=== PATIENT | female | born 1950 | race Two or more races ===

== ENCOUNTER 2020-05-09 14:47 | Inpatient (IN) | payer MEDICARE, MEDICAID ==
[~2020-05-09] VITALS: Ht 157.5 cm; Wt 63.1 kg
[~2020-05-09 14:47] MED LIST: LEVOTHYROXINE88 MCG ORAL
[2020-05-09] MEDS ORDERED: BENAZEPRIL HCL20 MG ORAL (14:58)
[2020-05-09 15:00] VITALS: BP 140/67
--- NOTE | 2020-05-09 15:00 | NUR ---
ED Nurse Note: Patient from home and walked in due to left side CP that radiates to her left shoulder started yesterday. Denies SOB or vomiting. No reports fo lightheadedness. AAO x,4 ambulates with steady agit with non labored breathing, Pt is calm and cooperative. Placed on radiographer cardiac catheterization. ERMD aware.
[2020-05-09] MEDS ORDERED: Nitroglycerin 2% oint pkt TOPIC ONE (15:15)
--- NOTE | 2020-05-09 15:18 | Emergency Room Report ---
History of Present Illness General Chief Complaint: Chest Pain Source: Patient Present Illness HPI 69-year-old female with past medical history of hypertension, dyslipidemia presents with substernal left-sided chest pressure that has been constant since yesterday. She called her primary care doctor Dr. Castillo who advised her to come to the ER for further evaluation. She denies history of angiogram, echocardiogram or recent cardiac evaluation. She did not take aspirin prior to arrival. She denies any shortness of breath, dyspnea on exertion, peripheral edema, cough, fever, hemoptysis, nausea, vomiting, diarrhea, hematuria, back pain or other symptoms. The patient's symptoms were gradual onset, severity was moderate, duration since 1 day. Quality: Pressure Past medical history: hypertension, dyslipidemia Past surgical history: Hysterectomy Smoking: Denies Alcohol use: Denies Drug use: Denies Review of systems: CONST: No fevers or chills, No night sweats PULMONARY: No productive cough, No shortness of breath CARDIAC: No chest pain, No palpitations GI: No vomiting, No diarrhea , No melena_or_BRBPR : No dysuria, No hematuria, No discharge NEURO: No new_focal_weakness_or_numbness, No confusion, No vision changes 14 point Review of Systems is otherwise negative except per HPI Physical Exam: GENERAL: Awake_alert_ nontoxic, no acute distress Spo2 100% on RA -normal EYES: Extraocular muscles are intact. Conjunctivae clear. Lids without swelling ENT: External nose and ear normal_in_appearance. Oropharynx clear. Head_atraumatic, Moist_oral_mucosa NECK: No JVD. No meningismus. No thyromegaly. Supple. Trachea midline RESP: Normal respiratory effort. Symmetric rise. No stridor. Clear_to_auscultation_No_rales_No_wheezes CARDIAC: Regular rate and regular rhytm. No_significant pedal edema. ABDOMEN: Soft. Nondistended. Nontender_No_rebound_or_guarding. MSK: Normal muscle tone, without rigidity. Extremities without asymmetric deformity or swelling. SKIN: Warm and dry. No visible cyanosis or pallor NEUROLOGIC: Alert, oriented x3. Motor_and_sensation_grossly_intact. No truncal ataxia. Gait_normal Psych: Normal mood and affect, normal judgment and insight - COORDINATION OF CARE Case was discussed with: Patient , Patient's Physician Any labs and imaging that were ordered were interpreted as part of the medical decision making: Medical Decision Making/Plan: Differential diagnosis includes acute myocardial infarction, acute coronary syndrome and unstable angina, pulmonary embolism, pneumothorax, pneumonia, and aortic dissection, among others. Patient is currently well appearing with stable vitals. EKG shows biphasic T wave inversions in lead V2, V3, and T wave inversions in the lateral leads. No STEMI. Chest xray shows cardiomegaly with no pleural effusions or interstitial edema. No evidence of decompensated CHF. No evidence of pneumothorax, pneumonia, or significant pleural effusion. Troponin is negative x1. Aspirin given. However, given that chest pain is currently resolved, risks likely outweigh benefits of IV heparin at this time, so deferred. The pain is not classic for pericarditis or myocarditis, and the patient has no significant risk factors for a pericardial effusion and has stable vitals signs, unlikely to have tamponade. Pain is not likely to be pulmonary embolism, patient has no significant PE risk factors. The presentation is not consistent with dissection, pain is not severe, radiating to back, or tearing in nature. Has normal bilateral radial and pedal pulses. However given patients presentation and risk factors, patient will be admitted for serial troponins and risk stratification and evaluation for likely stress testing. This patient appears to be a suitable candidate for transfer to telemetry floor at this time with orders from the admitting physician who is aware of the patient's evaluation, ancillary test findings, and current condition, and agrees with treatment and disposition. I spoke with Dr. Da Silva, and reviewed the patients presentation, workup, results, and treatment. They will admit the patient for further care and evaluation, and assume care of the patient at this time. Allergies: Coded Allergies: No Known Allergies (Unverified , 11/18/13) COVID-19 Screening Contact w/high risk pt: No Experienced COVID-19 symptoms?: No COVID-19 Testing performed FORGING MACHINE HAND: No Nursing Documentation-[facility] Past Medical History: No History, Except For Hx Hypertension: Yes Physical Exam Vital Signs Date Time Temp Pulse Resp B/P (MAP) Pulse Ox O2 Delivery O2 Flow Rate FiO2 05/09/20 14:50 98.4 66 18 152/76 (101) 97 Room Air Sp02 EP Interpretation: reviewed, normal Medical Decision Making Diagnostic Impression: Primary Impression: Chest pain Additional Impressions: Abnormal EKG HTN (hypertension) HLD (hyperlipidemia) EKG Diagnostic Results PA Scribe Zo 12-lead EKG (interpreted by me) Time: 1454 Indication: Rhythm analysis Tracing visualized and Interpreted by me. Rhythm: Normal sinus rhythm Rate: 63 bpm QTc: 425 Morphology: No_significant_ST_elevations_or_depressions, No STEMI Impression: Biphasic T wave inversions in lead V2 and V3. T wave inversions in lateral leads. No acute STEMI Rhythm Strip Diag. Results Rhythm Strip Time: 15:18 EP Interpretation: yes Rate: 65 Rhythm: NSR, no PVC's, no ectopy Chest X-Ray Diagnostic Results Chest X-Ray Diagnostic Results : RENA Alvarezibe Zo Chest X-Ray: Views: 1 view(s) Indication: Chest pain Findings: Normal heart size. Mediastinum normal. No infiltrate. Impression: No acute disease The X-ray(s) were independently viewed and interpreted contemporaneously Electronically signed by Carmina maldonado DO Reevaluation Time: 16:16 Last Vital Signs Date Time Temp Pulse Resp B/P (MAP) Pulse Ox O2 Delivery O2 Flow Rate FiO2 05/09/20 15:13 152/76 05/09/20 14:50 98.4 66 18 97 Room Air Status: improved Disposition: ADMITTED INPATIENT Admit Decision Time: 15:18 Condition: Stable Carmina Bess D.O. May 09, 2020 15:18
--- NOTE | 2020-05-09 15:23 | NUR ---
ED Nurse Note: Collected blood specimen then sent.
[2020-05-09 15:29] LABS: BASOPHILS % (AUTO) 1.7 % (0.0-2.0); EOSINOPHILS % (AUTO) 2.5 % (0.0-3.0); HEMATOCRIT 41.1 % (37.0-47.0); HEMOGLOBIN 13.9 G/DL (12.0-16.0); MEAN CORPUSCULAR VOLUME 90 FL (80-99); MONOCYTES % (AUTO) 9.2 % (1.0-10.0); NEUTROPHILS % (AUTO) 41.8 % (45.0-75.0); PLATELET COUNT 230 K/UL (150-450); RED BLOOD COUNT 4.57 M/UL (4.20-5.40); RED CELL DISTRIBUTION WIDTH 12.3 % (11.6-14.8); WHITE BLOOD COUNT 7.7 K/UL (4.8-10.8)
[2020-05-09 15:48] LABS: ANION GAP 5 mmol/L (5-15); BLOOD UREA NITROGEN 11 mg/dL (7-18); CALCIUM 8.9 MG/DL (8.5-10.1); CARBON DIOXIDE 29 MMOL/L (21-32); CHLORIDE 109 MMOL/L (98-107); CREATININE 0.8 MG/DL (0.55-1.30); POTASSIUM 3.5 MMOL/L (3.5-5.1); SODIUM 143 MMOL/L (136-145)
[2020-05-09 15:59] LABS: ALANINE AMINOTRANSFERASE 52 U/L (12-78); ALBUMIN 3.9 G/DL (3.4-5.0); ALBUMIN/GLOBULIN RATIO 1.1 (1.0-2.7); ALKALINE PHOSPHATASE 95 U/L (46-116); ASPARTATE AMINO TRANSFERASE 35 U/L (15-37); BILIRUBIN,TOTAL 0.3 MG/DL (0.2-1.0); CHOLESTEROL 192 MG/DL (< 200); HDL CHOLESTEROL 55 MG/DL (40-60); TRIGLYCERIDES 87 MG/DL (30-150)
--- NOTE | 2020-05-09 16:00 | NUR ---
ED Nurse Note: Patient is resting on gurney with no distress at this time. Calm and speaks in full sentences.
--- NOTE | 2020-05-09 16:56 | Diagnostic Imaging Report ---
FILM CXR 1 VIEW INDICATION: Pain COMPARISON: November 18, 2013 FINDINGS: Single frontal view demonstrates prominent heart size and pulmonary vascular congestion. The lungs are clear. No pleural effusions. The visualized osseous structures are within normal limits. IMPRESSION: Enlarged heart and mild pulmonary congestion without focal pneumonia.
[2020-05-09 17:13] VITALS: BP 105/62
--- NOTE | 2020-05-09 17:13 | NUR ---
ED Nurse Note: Patient sleeping in bed. No facial grimacing or guarding noted.
--- NOTE | 2020-05-09 17:23 | NUR ---
ED Nurse Note: Report given to dee dee KAUR of telemetry unit.
--- NOTE | 2020-05-09 17:30 | NUR ---
NURSE NOTES: Pt arrived in the unit. Received report from SANDRA Wilder RN. Pt alert, A/O x4, Wolof speaking but understands German, able to make needs known. Pt has steady gait. Pt complaining of 8/10 pain on L chest that radiates to L shoulder, nitro patch still intact from ED. VS obtained and WNL (BP 115/67, RR 16, O2 sat in RA 98%, HR 60). Admission assessment performed, skin intact. IV site patent and asymptomatic. Bed on lowest position, call light within reach. Med brought by pt, will bring to pharmacy. Pt refused to re-count her money and refused to keep in safe. Will contact MD for admission orders.
[2020-05-09 18:00] VITALS: BP 115/67
--- NOTE | 2020-05-09 18:20 | NUR ---
NURSE NOTES: Left a VM to Dr Sherman, awaiting for callback for admission orders.
[2020-05-09] MEDS ORDERED: Morphine Sulfate 4mg/ml Inj (IV USE ONLY) IVP PRN (18:30)
[2020-05-09] MEDS ORDERED: Milk of Magnesia 30ml Ud ORAL PRN (18:30)
[2020-05-09] MEDS ORDERED: Zolpidem 5mg tab ORAL PRN (18:30)
[2020-05-09] MEDS ORDERED: Aspirin EC 325mg tab ORAL SCH (18:30)
[2020-05-09] MEDS ORDERED: Morphine Sulfate 2mg/ml Inj(IV/IM USE ONLY) IVP PRN (18:30)
--- NOTE | 2020-05-09 19:25 | NUR ---
NURSE NOTES: Patient received from NATASHA Selby. Patient is awake, alert and oriented x 4. Patient is talkative, only speaks Yemeni. Patient is in room air satting at 98%. Patient has a 20 gauge IV on his right AC. No complaints at this moment. Bed is in the lowest position, call light within reach. Will continue to monitor.
[2020-05-09] MEDS: Lisinopril 10mg tab ORAL SCH (19:30)
--- NOTE | 2020-05-09 19:34 | NUR ---
NURSE HAND-OFF REPORT: Important Events on Shift: New admit Patient Status: Diet: Pending Orders: Pending Results/Labs: Pending MD notification: Latest Vital Signs: Temperature 96.4 , Pulse 60 , B/P 115 /67 , Respiratory Rate 16 , O2 SAT 98 , Room Air, O2 Flow Rate . Vital Sign Comment: EKG Rhythm: Sinus Rhythm Rhythm change?: MD Notified?: - MD Response: Latest Ferrer Fall Score: 20 Fall Risk: Low Risk Safety Measures: Call light Within Reach, Bed Alarm Zone 1, Side Rails Side Rails x2, Bed position Low and Locked. Fall Precautions: Patient Fall Education Report given to NATASHA Black
[2020-05-09 20:00] VITALS: BP 108/52
--- NOTE | 2020-05-09 20:40 | NUR ---
NURSE NOTES: Patient experienced an episode of low BP 108/52. Contacted Dr. Sha Sherman. Instructed to hold lisinopril [address] Sha Sherman.
[2020-05-10 00:05] VITALS: BP 106/57
[2020-05-10 04:00] VITALS: BP 136/71
--- NOTE | 2020-05-10 07:20 | NUR ---
NURSE HAND-OFF REPORT: Important Events on Shift:[Hold lisinopril for SBP less than [address] Sha Sherman] Patient Status: [] Diet: [No added salt diet] Pending Orders: [] Pending Results/Labs:[] Pending MD notification:[] Latest Vital Signs: Temperature 97.9 , Pulse 60 , B/P 136 /71 , Respiratory Rate 16 , O2 SAT 98 , Room Air, O2 Flow Rate . Vital Sign Comment: [] EKG Rhythm: Sinus Rhythm Rhythm change?: Y MD Notified?: N - MD Response: Latest Ferrer Fall Score: 20 Fall Risk: Low Risk Safety Measures: Call light Within Reach, Bed Alarm Zone 1, Side Rails Side Rails x2, Bed position Low and Locked. Fall Precautions: Patient Fall Education Report given to [NATASHA Montaño].
--- NOTE | 2020-05-10 07:26 | NUR ---
NURSE NOTES: Pt in bed eating breakfast. No complaint of pain or distress. bed low and locked. call light within reach. Whiteboard updated. Addendum: 05/10/20 at 0729 by Sabra Bermudez RN Pt received from NATASHA Black.
[2020-05-10 08:00] VITALS: BP 126/70
[2020-05-10] MEDS: Nitroglycerin Subl 0.4mg tab SL PRN ×2 (08:08→08:14)
[2020-05-10] MEDS: Lisinopril 10mg tab ORAL SCH (09:00)
--- NOTE | 2020-05-10 09:02 | NUR ---
NURSE NOTES: At 8:10 pt complained of 8/10 chest pain radiating to left should. BP 126/70. Gave nitro SL .4mg. after 5 minutes pain at 7/10 same radiation pattern. Gave second dose. BP dropped to 102/62. o2 at 2 liters NC applied. spoke to Dr. Sherman who said to contact Dr. Steiner. Per Dr. Johnson do Stat EKG. After reviewing ekg results he ordered venous duplex and 2d echo. All orders place. Current pain is 3/10 in the chest with radiation to left shoulder. States that she experienced epigastric pain as well a few moments ago but now it is gone.
[2020-05-10] MEDS: Aspirin EC 325mg tab ORAL SCH (09:22)
--- NOTE | 2020-05-10 09:48 | History & Physical ---
History and Physical History & Physicial HP dictated # [id number] Sha Sherman MD May 10, 2020 09:48
--- NOTE | 2020-05-10 10:45 | History and Physical Report ---
DATE OF ADMISSION: 05/09/2020 CHIEF COMPLAINT: Chest pain. HISTORY OF PRESENT ILLNESS: This is a 69-year-old female who presented to the emergency room with chest pressure which started the day prior to admission. The patient now states that when she takes a deep breath, the pain is worse. The patient was admitted for further evaluation and treatment. PAST MEDICAL HISTORY: The patient denies history of diabetes, although it is mentioned in the ER note, she does have history of hypertension and hyperlipidemia. PAST SURGICAL HISTORY: Hysterectomy. MEDICATIONS: Reviewed in the EMR. SOCIAL HISTORY: No history of smoking or alcohol abuse. The patient lives with her children. ALLERGIES: No known drug allergies. REVIEW OF SYSTEMS: Noncontributory except above. PHYSICAL EXAMINATION: GENERAL: The patient is a 69-year-old female in no acute distress. VITAL SIGNS: Blood pressure 115/62, pulse 66, temperature 98.7, respiratory rate 17. HEENT: [place] conjunctivae. Anicteric sclerae. NECK: Supple. LUNGS: Clear to auscultation. CHEST: The patient has some tenderness. HEART: S1, S2 without murmurs or rubs. ABDOMEN: Soft, nontender. EXTREMITIES: No cyanosis or edema. LABORATORY FINDINGS: CBC shows a WBC of 7700, hematocrit 41.1, hemoglobin is 13.9, platelets 230,000. Chemistry panel shows a serum sodium 143, potassium 3.5, chloride 109, BUN is 11, creatinine 0.8. TSH is 9.9. EKG could not be found in the chart today; however, the tracing does not show any acute changes. ASSESSMENT: This is a 69-year-old female who was admitted with chest pain, although the patient says it is pressure like; however, now she said that it is worse with respirations so it appears that it is pleuritic chest pain and atypical. Her risk factors are hypertension and hyperlipidemia. PLAN: The patient will have troponins checked to rule out myocardial infarction. Cardiology consultation will be obtained. The patient will likely need a stress test prior to discharge after she is ruled out. Lipid panel will be checked. Medication will be adjusted. TSH is somewhat on the high side; however, she is on levothyroxine, which we will continue and I will not increase the dose at this time. The patient was started on aspirin. Sha Sherman M.D. DR: Efrain JOB#: [id number] CC:
--- NOTE | 2020-05-10 10:55 | Diagnostic Imaging Report ---
EXAM: ULTRASOUND Venous Duplex Scan Ashvin Leg CLINICAL HISTORY: Leg pain and edema. COMPARISON: None TECHNIQUE: Doppler examination include grayscale images obtained with and without compression, and color and spectral doppler analysis. FINDINGS: Doppler examination shows normal spontaneity, phasicity, compressibility in the bilateral lower extremities. There is no thrombus identified by grayscale. Normal color and spectral flow is identified. There is no evidence of valvular incompetency or insufficiency. IMPRESSION: UNREMARKABLE VENOUS DUPLEX.
[2020-05-10 12:00] VITALS: BP 110/60
--- NOTE | 2020-05-10 14:00 | NUR ---
NURSE NOTES: Reported to Dr. Steiner the results od 2d echo, negative venous duplex, chest pain of 3/10 radiating to left shoulder. Waiting for response
--- NOTE | 2020-05-10 14:15 | NUR ---
CASE MANAGEMENT: REVIEW 69 YEAR OLD FEMALE PRESENTED TO ED FROM HOME CC: CHEST PAIN SI: ACS . HTN T 98.4 HR 53 RR 14 BP 152/76 SAT 97% ROOM AIR LDL CHOLESTEROL 119 TROP I 0.008 IS: ASA 325MG PO X1 NITROGLYCERIN 1 INCH TOPICAL X1 CARDIO CONSULTED 2D ECHO PENDING VENOUS DUPLEX SCAN BLE PENDING TELEMETRY UNIT STATUS DCP: PATIENT IS FROM HOME
[2020-05-10 16:00] VITALS: BP 110/60
--- NOTE | 2020-05-10 19:20 | NUR ---
NURSE NOTES: Received report from NATASHA Montaño pt in bed, awake, alert, oriented X4. Able to make needs known. No resp distress noted. 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 Right AC 20G saline locked, no s/s infiltration noted. Amb with slow steady gait. Bed in low position & locked, side rails up x2. Call light with in reach. bed alarm on. Explained to pt to use call light when assistance is needed.
--- NOTE | 2020-05-10 19:20 | NUR ---
NURSE HAND-OFF REPORT: Important Events on Shift:[chest pain not completeley relived by niotro. Nitro dropped her bp. stat ekg, troponin, and venous duplex done] Patient Status: [in bed alert and talkative.] Diet: [no salt added] Pending Orders: [na] Pending Results/Labs:[na] Pending MD notification:[na] Latest Vital Signs: Temperature 98.6 , Pulse 57 , B/P 110 /60 , Respiratory Rate 16 , O2 SAT 97 , Room Air, O2 Flow Rate . Vital Sign Comment: [stable] EKG Rhythm: Sinus Bradycardia Rhythm change?: Y MD Notified?: N - MD Response: Latest Ferrer Fall Score: 20 Fall Risk: Low Risk Safety Measures: Call light Within Reach, Bed Alarm Zone 1, Side Rails Side Rails x2, Bed position Low and Locked. Fall Precautions: Patient Fall Education Report given to [Amber KAUR].
[2020-05-10 20:00] VITALS: BP 112/70
--- NOTE | 2020-05-10 20:10 | Cardiology Progress Note ---
Assessment/Plan Assessment/Plan ms pain reproducible on palpation abn ekg htn hyperlipidmia all trop are neg and pain reproduced by palptation however ekg abn , echo normal wall motion [id number] Objective Last 24 Hour Vital Signs Date Time Temp Pulse Resp B/P (MAP) Pulse Ox O2 Delivery O2 Flow Rate FiO2 05/10/20 16:00 98.6 66 16 110/60 (77) 97 05/10/20 16:00 57 05/10/20 12:00 60 05/10/20 12:00 98.1 57 16 110/60 (77) 97 05/10/20 09:00 Room Air 05/10/20 09:00 115/62 05/10/20 08:14 126/70 05/10/20 08:08 126/70 05/10/20 08:00 73 05/10/20 08:00 98.4 66 17 126/70 (88) 96 05/10/20 04:00 60 05/10/20 04:00 97.9 62 16 136/71 (92) 98 05/10/20 00:05 97.9 63 16 106/57 (73) 97 05/10/20 00:00 56 05/09/20 21:00 Room Air Intake and Output 05/09/20 05/10/20 19:00 07:00 Intake Total 0 ml 350 ml Balance 0 ml 350 ml Intake Oral 0 ml 350 ml # Voids 3 Laboratory Tests Test 05/10/20 02:53 05/10/20 09:35 05/10/20 18:00 Hemoglobin A1c 6.1 % (4.3-6.0) H Magnesium Level 2.4 MG/DL (1.8-2.4) Troponin I 0.000 ng/mL (0.000-0.056) 0.000 ng/mL (0.000-0.056) 0.000 ng/mL (0.000-0.056) Thyroid Stimulating Hormone (TSH) 9.974 uiU/mL (0.358-3.740) Gt Steiner MD May 10, 2020 20:10
[2020-05-10] MEDS ORDERED: Lexiscan 0.4mg/5ml syringe IV PRN (20:15)
[2020-05-11] VITALS: BP 116/75
--- NOTE | 2020-05-11 01:00 | Consultation ---
DATE OF CONSULTATION: 05/10/2020 CARDIOLOGY CONSULTATION CONSULTING PHYSICIAN: Gt Steiner MD. REFERRING PHYSICIAN: Sha Sherman MD. REASON FOR REFERRAL: Chest pain. HISTORY OF PRESENT ILLNESS: This is a 69-year-old female with history of hypertension and hyperlipidemia, who presented to the hospital because of pain that started approximately 3 days ago. She went to bed after eating dinner. In the middle of night, she woke up to go the bathroom and noticed the pain in the left side. The pain has been persistent since then and gets worse when she moves or twists, turns, or when she takes a deep breath or coughing as well. She has no shortness of breath when she walks and she denies pain getting worse when she actually walks to the bathroom here. She has 1 pillow usage. There is no PND. No orthopnea and no palpitation. No dizziness on standing. PAST MEDICAL HISTORY: Positive for high blood pressure and high cholesterol. No history of heart attack. No cancer. No stroke. No hepatitis or tuberculosis. No asthma or emphysema. No ulcers. No kidney problems. She has had some kind of liver problems that occurred many years ago for which she was treated at different hospitals, but she does not know what that was. She does have few thyroid problems and no HIV, AIDS, or blood clots. She does have varicose veins in her left leg she says. ALLERGIES: She is not allergic to any medications. SOCIAL HISTORY: Never smoked or drank or used drugs. REVIEW OF SYSTEMS: GASTROINTESTINAL: She has no nausea or vomiting. She does have some epigastric pain. No diarrhea. No constipation. No black or bloody stools. GENITOURINARY: Denies any problem with urination. PULMONARY: Denies any coughing or wheezing. CONSTITUTIONAL: Denies. PHYSICAL EXAMINATION: GENERAL: Shows to be a middle-aged female, in no respiratory distress. NECK: Supple. No jugular venous distention. CHEST: Chest wall is tender to palpation. No heaves or thrills noted. LUNGS: Clear to auscultation, percussion. CARDIAC: Regular rate and rhythm. ABDOMEN: Soft, nontender. Positive bowel sounds. EXTREMITIES: There is no clubbing, cyanosis, or edema. NEUROLOGICAL: She is awake, alert, and responsive. LABORATORY VALUES: Four sets of cardiac enzymes are all negative. Her white count 7.7, hemoglobin 13.9, platelet count of 230. Sodium is 143, potassium 3.5, chloride 109, bicarb 29, BUN of 11, creatinine 0.8, glucose of 87. Liver function tests were normal. ProBNP was only 66. Albumin of 3.9. Cholesterol 192 with LDL of 119 and HDL of 55. Lipase of 263. Coags, INR of 1 and PTT of 20. Her chemistries, her troponin level is negative on 5 different occasions. Her telemetry shows sinus. Her EKG, however, does show some biphasic T-waves in V1, V2, V3, V4, and V5. Her echocardiogram preliminary report was technically difficult, normal left ventricular systolic function. No wall motion abnormalities. Ejection fraction of 55%. She did have x-rays done in the emergency room, enlarged heart, mild pulmonary vascular congestion without focal pneumonia. She did have a venous duplex study of the lower extremity that was unremarkable. ASSESSMENT AND PLAN: 1. Chest pain suggestive of musculoskeletal pain, reproducible on palpation. 2. Abnormal EKG. 3. Hypertension. 4. Hyperlipidemia. 5. Varicose veins. Dr. Sherman, this patient was seen in cardiac consultation. The patient's pain is clearly reproducible on palpation of the chest wall. She has been having this pain for approximately 3 days and all cardiac enzymes are negative, so I suspect that the pain that she is actually experiencing is musculoskeletal in origin. The EKG however is abnormal. Chronicity of this EKG changes are not known and she deserves further evaluation as such we will order a myocardial perfusion imaging to be performed tomorrow to address the EKG abnormalities in light of the fact that all the cardiac enzymes are negative. Gt Steiner M.D. DR: MAKENZIE JOB#: [id number] CC:
[2020-05-11 04:00] VITALS: BP 132/72
--- NOTE | 2020-05-11 07:12 | NUR ---
NURSE HAND-OFF REPORT: Important Events on Shift:Pt NPO for risa Patient Status: stable Diet: no added salt Pending Orders: [] Pending Results/Labs:[] Pending MD notification:[] Latest Vital Signs: Temperature 97.9 , Pulse 62 , B/P 132 /72 , Respiratory Rate 20 , O2 SAT 99 , Room Air, O2 Flow Rate . Vital Sign Comment: [] EKG Rhythm: Sinus Rhythm Rhythm change?: Y MD Notified?: N - MD Response: Latest Ferrer Fall Score: 20 Fall Risk: Low Risk Safety Measures: Call light Within Reach, Bed Alarm Zone 1, Side Rails Side Rails x2, Bed position Low and Locked. Fall Precautions: Patient Fall Education Report given to NATASHA Montaño.
--- NOTE | 2020-05-11 07:25 | NUR ---
NURSE NOTES: Pt received from Amber KAUR. pt in bed awake and alert no complaint of chest pain at this time. SHe is NPO and understadn she will be having a lexiscan later today. Bed low not locked as she is ambulatory and stable. call light within reach, she complain of some pain in her right big toe where nail is digging into skin. Will ask MD for wound consult.
[2020-05-11 08:00] VITALS: BP 137/71
[2020-05-11] MEDS: Aspirin EC 325mg tab ORAL SCH (09:28)
[2020-05-11 12:00] VITALS: BP 150/76
--- NOTE | 2020-05-11 14:17 | CDS Physician Query ---
Clarification is required for compliance, coding accuracy, and to reflect severity of illness for this patient Dear Dr. Sha Sherman Date 05/11/2020 Bronc Buster/CDS Name Tabatha Bradley Clinical Documentation states: Cardiology classes - 69-year-old female with history of hypertension and hyperlipidemia, who presented to the hospital because of pain that started approximately 3 days ago....1. Chest pain suggestive of musculoskeletal pain, reproducible on palpation. 2. Abnormal EKG. Troponin: 05/09 0.008 ng/mL Please document the suspected etiology of Chest Pain: [x] Costochondritis [] Acute Coronary Syndrome [] Pericarditis [] Anxiety [] Cancer [] Pneumonia [] GERD/Esophagitis [] Other: [] Unable to determine Present on Admission: [] Yes [] No [] Clinically Undetermined Physician signature Date Please also document in your Progress Notes and/or Discharge Summary and indicate if the condition was present on admission. SHANKAR
--- NOTE | 2020-05-11 14:21 | Cardiology Progress Note ---
Assessment/Plan Assessment/Plan 1. Chest pain suggestive of musculoskeletal pain, reproducible on palpation. 2. Abnormal EKG. 3. Hypertension. 4. Hyperlipidemia. 5. Varicose veins. mpi just performed no rash to suggest shingles all trop neg if mpi is neg ok to dc home to chest wall remain tender to palpation no skeletal abn bassed on cxr Subjective Cardiovascular: Reports: chest pain - still to touch adn with twistitn and turning Respiratory: Denies: shortness of breath Genitourinary: Denies: burning Objective Last 24 Hour Vital Signs Date Time Temp Pulse Resp B/P (MAP) Pulse Ox O2 Delivery O2 Flow Rate FiO2 05/11/20 12:00 53 05/11/20 12:00 99.0 55 20 150/76 (100) 99 05/11/20 09:00 Room Air 05/11/20 08:00 54 05/11/20 08:00 97.5 54 18 137/71 (93) 99 05/11/20 04:00 97.9 62 20 132/72 (92) 99 05/11/20 04:00 53 05/11/20 00:00 98.7 74 18 116/75 (89) 97 05/11/20 00:00 56 05/10/20 21:00 Room Air 05/10/20 20:00 98.0 70 18 112/70 (84) 98 05/10/20 20:00 70 05/10/20 16:00 98.6 66 16 110/60 (77) 97 05/10/20 16:00 57 General Appearance: no apparent distress, alert Neck: supple Cardiovascular: normal rate, other - chgest wall tenderness to palpation Respiratory/Chest: lungs clear Abdomen: normal bowel sounds, non tender, soft Extremities: no swelling Intake and Output 05/10/20 05/11/20 19:00 07:00 Intake Total 200 ml Balance 200 ml Intake Oral 200 ml # Voids 3 Laboratory Tests Test 05/10/20 18:00 05/11/20 05:44 Troponin I 0.000 ng/mL (0.000-0.056) D-Dimer 0.45 mg/L FEU (0.00-0.49) Gt Steiner MD May 11, 2020 14:21
--- NOTE | 2020-05-11 14:24 | General Progress Note ---
Subjective Allergies: Coded Allergies: No Known Allergies (Unverified , 11/18/13) Subjective still with CP Objective Last 24 Hour Vital Signs Date Time Temp Pulse Resp B/P (MAP) Pulse Ox O2 Delivery O2 Flow Rate FiO2 05/11/20 12:00 53 05/11/20 12:00 99.0 55 20 150/76 (100) 99 05/11/20 09:00 Room Air 05/11/20 08:00 54 05/11/20 08:00 97.5 54 18 137/71 (93) 99 05/11/20 04:00 97.9 62 20 132/72 (92) 99 05/11/20 04:00 53 05/11/20 00:00 98.7 74 18 116/75 (89) 97 05/11/20 00:00 56 05/10/20 21:00 Room Air 05/10/20 20:00 98.0 70 18 112/70 (84) 98 05/10/20 20:00 70 05/10/20 16:00 98.6 66 16 110/60 (77) 97 05/10/20 16:00 57 Intake and Output 05/10/20 05/11/20 19:00 07:00 Intake Total 200 ml Balance 200 ml Intake Oral 200 ml # Voids 3 Laboratory Tests 05/10/20 18:00: Troponin I 0.000 05/11/20 05:44: D-Dimer 0.45 Height (Feet): 5 Height (Inches): 2.00 Weight (Pounds): 141 Cardiovascular: normal rate Respiratory/Chest: lungs clear Edema: no edema noted Generalized Assessment/Plan Problem List: (1) ACS (acute coronary syndrome) ICD Codes: I24.9 - Acute ischemic heart disease, unspecified SNOMED: 147859368 (2) HTN (hypertension) ICD Codes: I10 - Essential (primary) hypertension SNOMED: 98878753 (3) HLD (hyperlipidemia) ICD Codes: E78.5 - Hyperlipidemia, unspecified SNOMED: 81364822 (4) Abnormal EKG ICD Codes: R94.31 - Abnormal electrocardiogram [ECG] [EKG] SNOMED: 205237151 (5) Chest pain ICD Codes: R07.9 - Chest pain, unspecified SNOMED: 22782787 Assessment/Plan: stress test today discussed with Sha Jeffrey MD May 11, 2020 14:24
[2020-05-11 16:00] VITALS: BP 131/67
--- NOTE | 2020-05-11 16:09 | Diagnostic Imaging Report ---
Indications: Chest pain Technique: Single day single isotope protocol utilized. Initially, resting images obtained using IV administration 10.9 millicuries 99M technetium Myoview. Subsequently, patient underwent lexiscan stress testing. See cardiology report for details. During Lexiscan infusion, IV administration 30.2 mCi 99 M technetium Myoview. SPECT and planar images obtained. SPECT images gated to 8 phases of the cardiac cycle were also obtained, and reformatted into cine images for evaluation of ejection fraction. Comparison: none Findings: Per cardiology report, patient experienced nausea during infusion. Per cardiology report, resting EKG demonstrates normal sinus rhythm with two wave abnormality in leads V1 and V2. No significant ST changes during infusion. Imaging demonstrates normal poststress perfusion, no fixed nor reversible perfusion defects demonstrated. Normal left ventricular chamber size.. Calculated post stress ejection fraction 67%. No focal wall motion abnormality Impression: Nonischemic clinical response to pharmacologic stress, per cardiology report Nonischemic electrocardiographic response to pharmacologic stress, per cardiology report No imaging findings to suggest ischemia, at level of stress achieved. Calculated post stress ejection fraction 67%
--- NOTE | 2020-05-11 16:18 | NUR ---
CASE MANAGEMENT: REVIEW SI: ACS . HTN T 97.5 HR 53 RR 18 BP 150/76 SAT 97% ROOM AIR IS: LEXISCAN IV X1 MORPHINE IV Q3HR PRN STRESS TEST TELEMETRY UNIT STATUS DCP: PATIENT IS FROM HOME
--- NOTE | 2020-05-11 16:43 | NUR ---
NURSE NOTES: Per Dr. Steiner, pt can go home from cardio point of view. Called non urgent line for Dr. Sherman to let him know. left voicemail.
[2020-05-11] MEDS: Lisinopril 10mg tab ORAL SCH (16:47)
--- NOTE | 2020-05-11 17:05 | Cardiology Report ---
APPROVED REPORT EKG Measurement Heart [id number] NC 144P50 [id number] <Conclusion> Normal sinus rhythm T wave abnormality, consider anterior ischemia Abnormal ECG
[2020-05-11] MEDS ORDERED: NAPROXEN500 M2 ORAL (17:57)
[2020-05-11] MEDS ORDERED: FAMOTIDINE20 MG ORAL (17:57)
--- NOTE | 2020-05-11 19:00 | NUR ---
NURSE NOTES: RECEIVED PATIENT LYING ACROSS BED IN STREET CLOTHES. ALERT/ORIENTED X4, VERBALLY RESPONSIVE, DENIES PAIN, IV DISCONTINUED BY AM NURSE. NO SIGNS AND SYMPTOMS OF ACUTE CARDIO RESPIRATORY DISTRESS/SHORTNESS OF BREATH, DENIES CHEST PAIN, NO PERIPHERAL EDEMA NOTED. NO COMPLAINTS OF GI DISCOMFORT, NO N/V/D. SIDE RAILS UP X2, BED IN LOWEST POSITION FOR SAFETY, BED ALARM ENGAGED FOR SAFETY. DC HOME TONIGHT, FAMILY ETA 1930, PATIENT AWARE. NAD. VITALS STABLE, AFEBRILE.
--- NOTE | 2020-05-11 19:17 | NUR ---
NURSE NOTES: Pt discharged home.. Wrist band removed. Iv removed. Paperwork signed, belongings signed for. Medication picked up from pharmacy and signed for. Tele monitor removed. Pt stable and understands that she must call Dr. Lorenzo oswald for appointment on Sunday the . Medication reviewed.
[2020-05-11 19:30] VITALS: BP 143/72
--- NOTE | 2020-05-11 19:30 | NUR ---
NURSE NOTES: PATIENT DISCHARGED HOME VIA FAMILY VEHICLE, IV DISCONTINUE BY AM NURSE. NO SIGNS AND SYMPTOMS OF ACUTE DISTRESS. VITALS STABLE, AFEBRILE.
--- NOTE | 2020-05-13 19:59 | Discharge Summary ---
Discharge Summary Discharge Summary _ DATE OF ADMISSION: 05/09/2020 DATE OF DISCHARGE: 05/11/2020 DISCHARGED BY: Dr. Sha Sherman CONSULTANTS: Dr. Gt Steiner [facility] HOSPITAL COURSE: The patient is a 69-year-old female who presented to the emergency room due to chest pressure that started on the day of admission. She was advised by her primary care doctor to go to ED for further evaluation. She denied any shortness of breath, dyspnea on exertion, edema, cough, fever, hemoptysis, nausea, vomiting, diarrhea, hematuria, back pain or other symptoms. She has underlying history of hypertension and hyperlipidemia. Upon evaluation at ED, blood pressure was 152/76, heart rate 66. EKG showed biphasic T wave inversions in lead V2, V3 and T wave inversion in the lateral leads. Chest x-ray showed cardiomegaly. No evidence of pneumothorax, pneumonia or pleural effusion. Troponin was negative. She was given aspirin. She was then admitted for evaluation of chest pain. She underwent cardiac evaluation. Cardiac enzymes were monitored. She was given antiplatelet therapy. She was given Pepcid. She was placed on lisinopril 10 mg daily. Telemetry showed sinus rhythm. Per subscription crew leader evaluation, EKG showed biphasic T waves in V1, V2, V3, V4 and V5. Echocardiogram showed ejection fraction of 55%. No wall motion abnormalities. Patient had reproducible pain on palpation of the chest wall. Cardiac enzymes were negative. TSH was elevated to 9. She was given levothyroxine 88 mcg daily. Venous duplex scan was negative. She underwent Lexiscan stress test. There was no imaging findings to suggest ischemia. Patient was then discharged home. FINAL DIAGNOSES: Chest pain due to costochondritis Hypertension Hyperlipidemia Abnormal EKG Hypothyroidism DISPOSITION: Patient was discharged home. DISCHARGE MEDICATIONS: Refer to Discharge Medication List. DISCHARGE INSTRUCTIONS: Follow-up in a week. I have been assigned to complete a discharge summary on this account, I was not involved with the patient's management.--CHRIS Yeh Jacqueline Robles NP May 13, 2020 19:59
--- NOTE | 2020-05-14 15:55 | Cardiology Report ---
APPROVED REPORT EXAM: Two-dimensional and M-mode echocardiogram with Doppler and color Doppler. INDICATION Chest Pain M-Mode DIMENSIONS IVSd0.9 (0.7-1.1cm)Left Atrium (MM)3.5 (1.6-4.0cm) LVDd5.0 (3.5-5.6cm)Aortic Root3.2 (2.0-3.7cm) PWd0.9 (0.7-1.1cm)Aortic Cusp Exc.2.0 (1.5-2.0cm) IVSs1.3 cmEPSS0.5 (>1.0cm) LVDs3.4 (2.5-4.0cm) PWs1.7 cm <Conclusion> Technically difficult study due to poor parasternal acoustical windows. Normal left ventricular chamber size, systolic function and wall motion to extent visualized. Left ventricular ejection fraction estimated to be 55 %. Anterior Echo-free space, may be due to pericardial fat or effusion. All other cardiac chamber sizes are within normal limits. Focal aortic valve sclerosis with adequate cusp excursion. Thickened mitral valve leaflets with normal excursion. Mitral annulus and aortic root calcification. Pulmonic valve not visualized. Normal tricuspid valve structure. IVC at normal size with physiologic collapse. A color flow and spectral Doppler study was performed and revealed: No aortic regurgitation. Mild mitral regurgitation. Mitral diastolic velocities suggest reduced left ventricular relaxation c/w mild LV diastolic dysfunction (Grade I ). Mild tricuspid regurgitation. Tricuspid systolic velocities suggests peak right ventricular systolic pressure of 26 mmHg.
--- NOTE | 2020-05-14 16:29 | Cardiology Report ---
APPROVED REPORT EKG Measurement Heart [id number] VT 142P31 [id number] <Conclusion> Normal sinus rhythm T wave abnormality, consider anterolateral ischemia Abnormal ECG
== END 2020-05-11 19:30 | disposition home or self-care (01) | DRG 206 ==
LOC: EMR 15:15 → 2E 15:50 → EDBEDREQ 17:05
DX: M94.0 Chondrocostal junction syndrome [Tietze] (principal); I10 Essential (primary) hypertension; E78.5 Hyperlipidemia, unspecified; I83.90 Asymptomatic varicose veins of unspecified lower extremity; R94.31 Abnormal electrocardiogram [ECG] [EKG]
CPT/HCPCS: 36415; 71045; 78452; 80053; 80061; 83036; 83690; 83735; 83880; 84443; 84484; 85025; 85379; 85610; 85730; 93005; 93017; 93306; 93970; 99285; J2785